=== PATIENT | female | born 1960 | race Caucasian/White ===

== ENCOUNTER → 2024-06-09 | Emergency (ER) | payer OTHER ==
[~2024-06-09] MED LIST: EPINEPHRINE 0.3 MG; ESTRADIOL 0.025 MG PATCH; IMMUNE GLOBULIN SUBCUTANEOUS; LIOTHYRONINE 5 MCG; PROGESTERONE 100 MG CAPSULE
== END | disposition left against medical advice (07) ==
LOC: ER 20:06
DX: R10.9 Unspecified abdominal pain (principal); Z53.21 Procedure and treatment not carried out due to patient leaving prior to being seen by health care provider